=== PATIENT | female | born 1950 | race American Indian/Alaskan Native ===

== ENCOUNTER 2017-02-08 08:06 | Day surgery (SDC) | payer BC, OTHER ==
--- NOTE | 2017-02-08 10:31 | Short Stay Summary ---
Short Stay Documentation Date of service: 02/08/17 Narrative H&P: lung cancer - History Principal diagnosis: left pleural effusion H&P: obtained from office - Allergies and Medications Current Medications: Allergies No Known Allergies Allergy (Verified 01/14/17 14:48) Home Medications Medication Instructions Recorded Confirmed Last Taken Type Aspirin EC [Aspirin Enteric Coated 81 mg PO DAILY 01/14/17 02/08/17 02/07/17 History TAB] Carvedilol [Coreg] 25 mg PO BID 01/14/17 02/08/17 02/07/17 History Insulin Glargine,Hum.rec.anlog 65 units SQ DAILY 01/14/17 02/08/17 02/07/17 History [Lantus Solostar] Losartan/Hydrochlorothiazide 1 tab PO DAILY 01/14/17 02/08/17 02/07/17 History [Losartan-Hctz 100-25 mg Tab] Vit D3 & K/Berberine HCl/Hops 1 each PO DAILY 01/14/17 02/08/17 02/07/17 History [Ostera Tablet] amLODIPine [Norvasc] 5 mg PO DAILY 01/14/17 02/08/17 02/07/17 History Erlotinib (Nf) [Tarceva (Nf)] 150 mg PO DAILY 02/08/17 02/08/17 02/07/17 History Ferrous Sulfate [Feosol] 325 mg PO BID 02/08/17 02/08/17 02/07/17 History Folic Acid [Folic Acid] 1 mg PO DAILY 02/08/17 02/08/17 02/07/17 History - Physical exam General appearance: no acute distress Lungs: Other (decreased breath sounds on left) - Brief post op/procedure progress note Date of procedure: 02/08/17 Pre-op diagnosis: left pleural effusion Post-op diagnosis: same Procedure: US left thoracentesis Anesthesia: local Surgeon: ADALBERTO LAGUNAS Estimated blood loss: none Pathology: none Specimen disposition: discarded Condition: stable - Hospital course Hospital course: uneventful - Disposition Condition at discharge: Good Disposition: DISCHARGED TO HOME OR SELFCARE Short Stay Discharge Plan Follow up with: PRIMARY CARE, [Primary Care Provider] - 7 Days
--- NOTE | 2017-02-08 10:33 | Ultrasound Report ---
ULTRASOUND THORACENTESIS HISTORY: malignant neoplasm of left lung, left pleural effusion. DESCRIPTION OF PROCEDURE: Informed consent was obtained. Sterile technique was utilized. 1% lidocaine for skin anesthesia. Using ultrasound guidance, a 5 [place] catheter was inserted into left pleural space. There was spontaneous return of bloody fluid. Only approximately 150 cc of fluid could be aspirated. There appears to be a moderate to large amount of thrombus within the left pleural collection. The patient tolerated the procedure with minor discomfort. IMPRESSION: Successful ultrasound-guided left thoracentesis. Only 150 cc of bloody fluid could be aspirated. There appears to be a moderate to large amount of thrombus within the left pleural space.
[2017-02-08 12:08] VITALS: BP 153/87
--- NOTE | 2017-02-08 12:13 | XRay Report ---
AP CHEST History: Shortness of breath, left pleural effusion. Findings: Recent ultrasound-guided left thoracentesis was performed. Only 150 cc of bloody fluid could be aspirated. A large left pleural effusion persists. The right lung is generally clear. Heart size and pulmonary vascularity are borderline. No pneumothorax. Impression: No pneumothorax. A moderate to large left pleural fluid collection persists. See above.
== END 2017-02-08 12:35 | disposition home or self-care (01) ==
LOC: OPU 08:06
PROVIDERS: ATTEND Internal Medicine Hematology & Oncology
DX: J90 Pleural effusion, not elsewhere classified (principal)
CPT/HCPCS: 32555; 71010

== ENCOUNTER 2017-05-20 13:03 | Outpatient (CLI) | payer MEDICARE, OTHER ==
--- NOTE | 2017-05-21 12:02 | PET Report ---
PET SB TO MT SUBSEQUENT: HISTORY: Restaging of lung cancer. TECHNIQUE: 14.2 millicuries F-18 FDG was administered intravenously. Noncontrast CT images and PET images were obtained from the skull base to the proximal thighs. Fused images were reviewed on a workstation. The patient's blood glucose level measured 185. COMPARISON: 01/14/17. FINDINGS: BRAIN: physiologic FDG uptake in the imaged brain. NECK: physiologic FDG uptake. MEDIASTINUM: physiologic FDG uptake. LUNGS: The numerous bilateral pulmonary nodules and masses has dramatically improved. There is near resolution of the pulmonary nodules. A few scattered millimetric nodules persists in the right lower lobe. The loculated fluid collection at the left lung base is unchanged. Diffuse uptake throughout the left pleura has nearly resolved as well. There is a small focus of increased uptake in the anterior left pleura measuring up to 2 cm with max SUV measuring 4.1. PLEURA/PERICARDIUM: physiologic FDG uptake. THORACIC LYMPH NODES: physiologic FDG uptake. HEPATOBILIARY: physiologic FDG uptake. Mean liver SUV measures 3.1. PANCREAS: physiologic FDG uptake. SPLEEN: physiologic FDG uptake. ADRENAL GLANDS: physiologic FDG uptake. KIDNEYS/RENAL COLLECTING SYSTEMS: physiologic FDG uptake. BOWEL/MESENTERY: physiologic FDG uptake. PELVIC VISCERA: physiologic FDG uptake. ABDOMINAL/PELVIC LYMPH NODES: physiologic FDG uptake. MUSCULOSKELETAL: physiologic FDG uptake. IMPRESSION: Dramatic positive response to therapy since 01/14/17. The numerous bilateral pulmonary nodules and masses have nearly resolved with only a few tiny nodules remaining. Dramatic improvement in the left pleural uptake is also demonstrated as outlined above. No new areas of disease are appreciated.
== END 2017-05-20 13:04 | disposition home or self-care (01) ==
LOC: PET 13:03
PROVIDERS: ATTEND Internal Medicine Hematology & Oncology
DX: C34.92 Malignant neoplasm of unspecified part of left bronchus or lung (principal); R91.1 Solitary pulmonary nodule; I10 Essential (primary) hypertension; E78.00 Pure hypercholesterolemia, unspecified
CPT/HCPCS: 78815; 82962; A9552

== ENCOUNTER 2017-08-05 10:48 | Outpatient (CLI) | payer MEDICARE, OTHER ==
--- NOTE | 2017-08-06 12:39 | PET Report ---
PET/CT:08/05/17 10:48:00 CLINICAL: Lung cancer restaging. RADIOPHARMACEUTICAL: 14.9mCi F18-FDG. COMPARISON: 05/20/17 and 01/14/17 TECHNIQUE- Following intravenous injection of F-18 FDG and an approximately 60 minute uptake period, CT and PET images from the mid skull to the upper thighs were acquired with the patient in the fasted state. No contrast was administered. The CT protocol used for this PET CT study is designed for attenuation correction and anatomic localization of PET abnormalities. This executive coach CT is not desired to produce and cannot replace, rjcew-ly-swz-art diagnostic CT scans with specific imaging protocols for different body parts and indications. Plasma glucose at the time of this test: 112g/dl. The standardized uptake values (SUV) are normalized to patient body weight and indicate the highest activity concentration (SUV max) in a given disease site. FINDINGS: Brain--Physiologic FDG uptake in the visualized regions of the brain. Neck--Physiologic FDG uptake . Chest--Physiologic FDG uptake in mediastinal blood pool and myocardium. An FDG avid left inferior chest wall mass measures 3.6 x 3.1 cm with SUV 14.8. The mass is in the intercostal space between the left eighth and ninth ribs. Lucency in the ninth rib suggest that it arises from the ninth rib. On the last exam there was focal FDG uptake in the intercostal space with SUV 4.1 but no distinct mass. Lungs--No abnormal uptake. Previously described bilateral multilobar subcentimeter nodular lung opacities are stable. Stable loculated fluid collection at the left lung base measuring 12 cm craniocaudal dimension a 7.9 cm transverse dimension by 13.4 cm AP dimension. No pleural effusion. Pleura/pericardium--No abnormal uptake. Thoracic nodes--No abnormal uptake. Hepatobiliary--No abnormal uptake. Liver background SUV mean, as a reference for comparing FDG studies, is 3.6 compared to 2.8 on the last exam. No liver mass. Spleen--No abnormal uptake. Pancreas--No abnormal uptake. Adrenal Glands--No abnormal uptake. Kidneys/Ureters/Bladder--No abnormal uptake. Right pelvic kidney. Abdominopelvic Nodes--No abnormal uptake. Bowel/Peritoneum/Mesentery--No abnormal uptake. Pelvic organs--No abnormal uptake. Bones/Soft Tissues--A small lytic lesion of the left ninth rib with the associated FDG avid soft tissue mass. No other suspicious bone lesions. IMPRESSION- 1. Progression of disease with a 3.6 cm FDG avid left chest wall mass in the left eighth intercostal space which appears to be associated with a lytic metastasis of the left ninth rib 2. Stable non-FDG avid pulmonary nodules. 3. No evidence of hepatic or julius metastasis.
== END 2017-08-05 10:49 | disposition home or self-care (01) ==
LOC: PET 10:48
PROVIDERS: ATTEND Internal Medicine Hematology & Oncology
DX: C34.92 Malignant neoplasm of unspecified part of left bronchus or lung (principal); R91.8 Other nonspecific abnormal finding of lung field; Z79.899 Other long term (current) drug therapy
CPT/HCPCS: 78815; 82962; A9552

== ENCOUNTER 2017-08-17 06:20 | Day surgery (SDC) | payer MEDICARE, OTHER ==
[2017-08-17 07:15] LABS: Basophils % (Auto) 0.7 % (0.0-1.8); Hematocrit 30.3 % (30.3-42.9); Hemoglobin 10.1 gm/dl (10.1-14.3); Mean Corpuscular HGB Conc 33 % (30-34); Mean Corpuscular Hemoglobin 29 pg (28-32); Mean Corpuscular Volume 88 fl (79-97); Platelet Count 223 K/mm3 (140-440); Red Blood Count 3.45 M/mm3 (3.65-5.03); Red Cell Distribution Width 15.1 % (13.2-15.2); White Blood Count 3.9 K/mm3 (4.5-11.0)
[2017-08-17] MEDS ORDERED: SUBLIMAZE IV ONE (09:00)
[2017-08-17] MEDS ORDERED: VERSED IV ONE (09:00)
[2017-08-17 09:02] LABS: INR 1.06 (0.87-1.13); Partial Thromboplastin Time 27.1 Sec. (24.2-36.6)
[2017-08-17 11:20] VITALS: BP 134/77
--- NOTE | 2017-08-17 11:32 | Cat Scan Report ---
CT BIOPSY LUNG LEFT HISTORY: Lung cancer, left ribs left chest wall mass. DESCRIPTION OF PROCEDURE: Informed consent was obtained. Sterile technique was utilized. 1% lidocaine for skin anesthesia. Moderate sedation was accomplished with Versed and fentanyl. The patient was sedated for 20 minutes. Independent cardiorespiratory monitoring by RN. Intra-observer time was [address] guidance, a 17-gauge introducer needle was advanced to the leading edge of a 3.8 x 3.3 cm left chest wall mass. Four 18-gauge core biopsies were obtained. The samples were deemed adequate by the pathologist on site. No complications. IMPRESSION: Successful CT-guided biopsy of the left chest wall mass.
== END 2017-08-17 12:00 | disposition home or self-care (01) ==
LOC: CATHLABREC 06:20 → EDSTATUS 08:30 → CATHLABREC 12:00
PROVIDERS: ATTEND Internal Medicine Hematology & Oncology
DX: C34.92 Malignant neoplasm of unspecified part of left bronchus or lung (principal)
CPT/HCPCS: 32405; 36415; 77012; 81235; 85025; 85610; 85730; 88305; J2250; J3010; 88333

== ENCOUNTER 2017-10-05 10:43 | Outpatient (CLI) | payer MEDICARE, OTHER ==
[2017-10-05] MEDS ORDERED: NACL ONE (11:23)
[2017-10-05 11:34] LABS: Blood Urea Nitrogen 25 mg/dL (7-17)
--- NOTE | 2017-10-05 14:33 | Cat Scan Report ---
CT scan of chest without and with IV contrast: History: Lung cancer. Findings: No definite endobronchial or mediastinal mass or definite adenopathy. There is pleural thickening noted along the mediastinum and left chest wall. There is loculated effusion noted in the left chest which appears to be pleural and measures 15 x 8.9 cm. Multiple scattered lung nodules of varying size probably metastatic. No previous studies available for comparison. Visualized liver spleen and pancreas appears normal. Suspected multiple calculi in the gallbladder. No area of consolidation. Impression: Multiple pulmonary nodules. Loculated large probably pleural effusion. Associated left pleural thickening. Multiple small calculi in the gallbladder.
== END 2017-10-05 10:44 | disposition home or self-care (01) ==
LOC: CT 10:43
PROVIDERS: ATTEND Internal Medicine Hematology & Oncology
DX: C34.92 Malignant neoplasm of unspecified part of left bronchus or lung (principal); R91.8 Other nonspecific abnormal finding of lung field; K80.20 Calculus of gallbladder without cholecystitis without obstruction
CPT/HCPCS: 36415; 71270; 82565; 84520; Q9967

== ENCOUNTER 2017-10-19 09:37 | Outpatient (CLI) | payer MEDICARE, OTHER ==
--- NOTE | 2017-10-19 14:28 | Ultrasound Report ---
Ultrasound of the chest. History: Left effusion. Findings: The estimated pleural fluid seen in the left hemothorax is 627 cc. There are multiple septations indicating loculation of the pleural fluid.
== END 2017-10-19 09:38 | disposition home or self-care (01) ==
LOC: US 09:37
PROVIDERS: ATTEND Specialist
DX: J90 Pleural effusion, not elsewhere classified (principal)
CPT/HCPCS: 76604

== ENCOUNTER 2017-12-02 09:58 | Outpatient (CLI) | payer MEDICARE, OTHER ==
--- NOTE | 2017-12-03 16:29 | PET Report ---
PET/CT:12/02/17 09:58:00 CLINICAL: Lung cancer restaging. RADIOPHARMACEUTICAL: 13.28mCi F18-FDG. COMPARISON: 08/05/17 and 01/14/17 PET/CT TECHNIQUE- Following intravenous injection of F-18 FDG and an approximately 60 minute uptake period, CT and PET images from the mid skull to the upper thighs were acquired with the patient in the fasted state. No contrast was administered. The CT protocol used for this PET CT study is designed for attenuation correction and anatomic localization of PET abnormalities. This crown assembly machine operator CT is not desired to produce and cannot replace, ydhha-ug-gil-art diagnostic CT scans with specific imaging protocols for different body parts and indications. Plasma glucose at the time of this test: 64g/dl. The standardized uptake values (SUV) are normalized to patient body weight and indicate the highest activity concentration (SUV max) in a given disease site. FINDINGS: Brain--Physiologic FDG uptake in the visualized regions of the brain. Neck--Physiologic FDG uptake . Chest/Lungs--Too numerous to count bilateral multilobar FDG avid and non-FDG avid lung nodules. Most of the lung nodules have developed since the last exam. Left upper lobe FDG avid nodule measures 1.4 1.2 cm within she be 8.1. The previously described FDG avid left chest wall mass has increased in size and measures approximately 5.7 x 4.2 cm within she be 14.7 compared to a maximum dimension of 3.6 cm and is to be 14.8 on the last exam. Stable collapse of the left lower lobe. A dominant FDG avid right lower lobe lung nodule measures 1.4 x 1.3 cm within she be 8.9. Pleura/pericardium--Stable large loculated left lower pleural effusion with FDG avid pleura and SUV 15.0. Thoracic nodes--No abnormal uptake. Hepatobiliary--No abnormal uptake. Liver background SUV mean, as a reference for comparing FDG studies, is 2.5 compared to 3.7 on the last exam. A new FDG avid left lobe lateral segment hepatic metastasis with HCV 14.5. The lesion is subtle on the CT and measures 1.2 cm. Spleen--No abnormal uptake. Pancreas--No abnormal uptake. Adrenal Glands--No abnormal uptake. Kidneys/Ureters/Bladder--No abnormal uptake. Abdominopelvic Nodes--No abnormal uptake. Bowel/Peritoneum/Mesentery--A new focus of FDG uptake in the left lower quadrant with SUV 9.1 which appears to be associated with a small bowel loop. There is no other bowel activity. No ascites. Pelvic organs--No abnormal uptake. Bones/Soft Tissues--No abnormal uptake. Other findings: Extensive new FDG uptake in the left diaphragm with extension into the posterior pararenal space. IMPRESSION- Progressive disease with too numerous to count bilateral multilobar pulmonary metastases, increased size of left chest wall and rib metastasis, a single new left hepatic metastasis and new diaphragmatic and left posterior pararenal tumor.
== END 2017-12-02 09:59 | disposition home or self-care (01) ==
LOC: PET 09:58
PROVIDERS: ATTEND Internal Medicine Hematology & Oncology
DX: C78.7 Secondary malignant neoplasm of liver and intrahepatic bile duct (principal); C79.51 Secondary malignant neoplasm of bone; C34.92 Malignant neoplasm of unspecified part of left bronchus or lung; R91.8 Other nonspecific abnormal finding of lung field; J98.19 Other pulmonary collapse; J90 Pleural effusion, not elsewhere classified; Z79.899 Other long term (current) drug therapy
CPT/HCPCS: 78815; 82962; A9552

== ENCOUNTER 2017-12-16 20:02 | Emergency (ER) | payer MEDICARE, OTHER ==
[~2017-12-16 20:02] MED LIST: ADRENALIN ONE
--- NOTE | 2017-12-16 20:28 | Emergency Department Report ---
ED CPR HPI - General Chief Complaint: Cardiac Arrest/CPR Stated Complaint: CARDIAC ARREST Time Seen by Provider: 12/16/17 20:22 Source: family, EMS Mode of arrival: Stretcher Limitations: Other (Unresponsive) - History of Present Illness Initial Comments: Brought in by EMS, noted to have clenched jaw on scene, flaccid limbs, non responsive, asystole on monitor, epinephrine given x2, no change in status, CPR in process, patient likely was down for a couple of hours, she did vomit during CPR, nasal airway in place. Upon arrival to ED room, patient is not responsive, has fixed and dilated pupils, asystole on monitor, we began CPR, gave one more epinephrine, continued with chest compressions, no pulse noted, sister who is a retired RN wanted us to stop CPR, stating this would have been the patient's wishes. Patient pronounced . MD Complaint: found unresponsive, stopped breathing Onset/Timin -: hour(s) Place: home Bystander CPR Performed: Yes (sister who is a retired RN) AED Applied by Bystander/Sports Fitness And Wellness Director: Yes (by welder first class) Shock Advised: No Downtime Before ACLS Arrival (mins): 2 (hours ) Initial Findings in the Field: unresponsive, no pulse Associated Symptoms: other (unknown) Treatments Prior to Arrival: other airway device, chest compressions, epinephrine mgs #, sodium bicarbonate - Related Data Home Medications Medication Instructions Recorded Confirmed Last Taken Aspirin EC [Aspirin Enteric Coated 81 mg PO DAILY 01/14/17 08/17/17 08/16/17 TAB] Carvedilol [Coreg] 25 mg PO BID 01/14/17 08/17/17 08/16/17 Insulin Glargine,Hum.rec.anlog 35 units SQ QHS 01/14/17 08/17/17 08/16/17 [Lantus Solostar] Losartan/Hydrochlorothiazide 1 tab PO DAILY 01/14/17 08/17/17 08/16/17 [Losartan-Hctz 100-25 mg Tab] Vit D3-Vit K/Berberine/Hops 1 each PO DAILY 01/14/17 02/08/17 02/07/17 [Ostera Tablet] amLODIPine [Norvasc] 5 mg PO DAILY 01/14/17 08/17/17 02/07/17 Erlotinib (Nf) [Tarceva (Nf)] 150 mg PO DAILY 02/08/17 08/17/17 08/16/17 Ferrous Sulfate [Feosol] 325 mg PO BID 02/08/17 08/17/17 08/16/17 Folic Acid [Folic Acid] 1 mg PO DAILY 02/08/17 08/17/17 08/16/17 AtorvaSTATin [Lipitor] 40 mg PO QHS 08/17/17 08/17/17 08/16/17 Ergocalciferol (Vitamin D2) 2,000 unit PO DAILY 08/17/17 08/17/17 08/16/17 [Vitamin D2] Potassium Chloride [K-Dur] 20 meq PO QDAY 08/17/17 08/17/17 08/16/17 Allergies Allergy/AdvReac Type Severity Reaction Status Date / Time No Known Allergies Allergy Verified 01/14/17 14:48 ED Review of Systems ROS: Stated complaint: CARDIAC ARREST Other details as noted in HPI Comment: Unobtainable due to pts medical conditions ED Past Medical Hx - Past Medical History Hx Hypertension: Yes Hx Diabetes: Yes - Social History Smoking Status: Never Smoker - Medications Home Medications: Home Medications Medication Instructions Recorded Confirmed Last Taken Type Aspirin EC [Aspirin Enteric Coated 81 mg PO DAILY 01/14/17 08/17/17 08/16/17 History TAB] Carvedilol [Coreg] 25 mg PO BID 01/14/17 08/17/17 08/16/17 History Insulin Glargine,Hum.rec.anlog 35 units SQ QHS 01/14/17 08/17/17 08/16/17 History [Lantus Solostar] Losartan/Hydrochlorothiazide 1 tab PO DAILY 01/14/17 08/17/17 08/16/17 History [Losartan-Hctz 100-25 mg Tab] Vit D3-Vit K/Berberine/Hops 1 each PO DAILY 01/14/17 02/08/17 02/07/17 History [Ostera Tablet] amLODIPine [Norvasc] 5 mg PO DAILY 01/14/17 08/17/17 02/07/17 History Erlotinib (Nf) [Tarceva (Nf)] 150 mg PO DAILY 02/08/17 08/17/17 08/16/17 History Ferrous Sulfate [Feosol] 325 mg PO BID 02/08/17 08/17/17 08/16/17 History Folic Acid [Folic Acid] 1 mg PO DAILY 02/08/17 08/17/17 08/16/17 History AtorvaSTATin [Lipitor] 40 mg PO QHS 08/17/17 08/17/17 08/16/17 History Ergocalciferol (Vitamin D2) 2,000 unit PO DAILY 08/17/17 08/17/17 08/16/17 History [Vitamin D2] Potassium Chloride [K-Dur] 20 meq PO QDAY 08/17/17 08/17/17 08/16/17 History ED Physical Exam - General Limitations: Other (unresponsive) General appearance: other (unresponsive) - Head Head exam: Present: atraumatic - Eye Eye exam: Present: other (Pupils are fixed and dilated) - ENT ENT exam: Present: other (vomitus noted in airway) - Neck Neck exam: Present: normal inspection - Respiratory Respiratory exam: Present: other (No spontaneous respirations) - Cardiovascular Cardiovascular Exam: Present: other (No heart sounds appreciated.) - GI/Abdominal GI/Abdominal exam: Present: soft - Rectal Rectal exam: Present: deferred - Extremities Exam Extremities exam: Present: normal inspection - Neurological Exam Neurological exam: Present: other (unresponsive) - Psychiatric Psychiatric exam: Present: other (unresponsive) - Skin Skin exam: Present: intact ED Course - Reevaluation(s) Reevaluation #1: 12/16/17 20:32 Disucssed with the sister who wanted us to stop CPR, which we did. Patient pronounced . Critical Care Time: Yes Critical care time in (mins) excluding proc time.: 15 Critical care attestation.: If time is entered above; I have spent that time in minutes in the direct care of this critically ill patient, excluding procedure time. Critical Care Time: 15 minutes ED Disposition Clinical Impression: Cardiac arrest due to other underlying condition Disposition: DC-20 Is pt being admited?: No Does the pt Need Aspirin: No Additional Instructions: Discharge to home Referrals: LAURY CASTRO MD [Primary Care Provider] - 3-5 Days
== END 2017-12-16 22:54 ==
LOC: ED 20:02
DX: I46.9 Cardiac arrest, cause unspecified (principal); I10 Essential (primary) hypertension; E11.9 Type 2 diabetes mellitus without complications
CPT/HCPCS: 92950; 99285; J0171